=== PATIENT | female | born 1970 | race Caucasian/White ===

== ENCOUNTER 2020-07-15 09:27 | Outpatient (REF) | payer OTHER, SELFPAY ==
[2020-07-15 11:23] LABS: MANUAL DIFF FLAG NO
[2020-07-15 11:46] LABS: Basophils Percent Auto 0.4 % (0-2); Eosinophils Absolute Auto 0.2 X10*3/uL (0.0-0.4); Eosinophils Percent Auto 2.8 % (0-4); Hematocrit 44.9 % (37-47); Hemoglobin 14.5 g/dl (12.0-16.0); Imm Gran Abs Auto 0.02 X10*3/uL (0.00-0.03); Imm Gran Pct Auto 0.4 % (0.0-0.4); Lymphocytes Absolute Auto 1.3 X10*3/uL (1.2-4.9); Mean Corpuscular HGB Conc 32.3 g/dl (31.0-35.0); Mean Corpuscular Hemoglobin 29.2 pg (27.0-33.0); Mean Corpuscular Volume 90.5 fL (80-98); Mean Platelet Volume 10.9 fL (9.4-12.3); Monocytes Absolute Auto 0.5 X10*3/uL (0.1-1.2); Monocytes Percent Auto 9.8 % (2-11); Neutrophils Absolute Auto 3.3 X10*3/uL (2.0-8.3); Neutrophils Percent Auto 62.6 % (45-73); Platelet Count 206 X10*3/uL (160-400); Red Blood Count 4.96 X10*6/uL (4.20-5.50); Red Cell Distribution Width 13.7 % (11.0-16.0); White Blood Count 5.3 X10*3/uL (4.8-10.8)
[2020-07-15 11:58] LABS: Alanine Aminotransferase 18 U/L (0-31); Anion Gap 12 (12-20); Aspartate Amino Transferase 17 U/L (5-31); Blood Urea Nitrogen 16 mg/dL (9-16); Calcium 9.3 mg/dL (8.4-10.2); Carbon Dioxide 28 mmol/L (22-29); Chloride 105 mmol/L (96-108); Cholesterol 187 mg/dL; Estimated Glomerular Filt Rate > 60; Glucose Fasting 94 mg/dL (60-99); HDL Cholesterol 64 mg/dL; LDL Cholesterol Calculated 111 mg/dl; Potassium 4.3 mmol/l (3.3-5.1); Sodium 141 mmol/L (135-145); Triglycerides 63 mg/dL
[2020-07-15 12:22] LABS: Vitamin D 25-OH Total 71.8 ng/mL (>30)
== END 2020-07-15 09:28 | disposition home or self-care (01) ==
LOC: HO.HMGCLDS 09:27
PROVIDERS: PCP Internal Medicine; Visit Provider Internal Medicine
DX: Z00.01 Encounter for general adult medical examination with abnormal findings (principal); C50.919 Malignant neoplasm of unspecified site of unspecified female breast; J45.20 Mild intermittent asthma, uncomplicated; I10 Essential (primary) hypertension
CPT/HCPCS: 36415; 80048; 80061; 82306; 84450; 84460; 85025

== ENCOUNTER 2022-07-06 10:56 | Outpatient (AMB) | payer OTHER, SELFPAY ==
--- NOTE | 2022-07-06 11:03 | MHC.PC.OV ---
Vital Signs 07/06/22 11:05 Height 5 ft 8 in Weight 156 lb BMI 23.7 BP 130/70 Blood Pressure Location Lt brachial Position Sitting Pulse 91 Pulse Source Pulse Oximeter Pulse Oximetry (%) 97 Oxygen Delivery Method Room Air Intake Visit Reasons: PE Intake Note: Pt is here today for her PE Allergies No Known Allergies Allergy (Verified 10/25/23 12:51) Medication List - Last Reconciled 07/06/22 by Dayanna Burden MD albuterol sulfate 90 mcg/actuation 2 puffs PO DAILY PRN anastrozole 1 mg PO DAILY cholecalciferol (vitamin D3) 50 mcg PO DAILY flu vac qs 2019(4 yr up)CD(PF) mL IM fluticasone propion-salmeterol 100-50 mcg/dose (Wixela Inhub) 1 ea PO Q12H multivitamin 1 tab PO DAILY Tobacco use date assessed: 07/06/22 HPI PE HPI Details 53-year-old lady with history mild intermittent asthma, right breast infiltrating duct carcinoma s/p lumpectomy, chemotherapy , radiation and hormone therapy, here today for physical exam.. Currently being followed by Oncology , currently up-to-date with her mammogram, last done 06/02/2022 at [facility]. [facility] Medical History (Updated 03/12/24 @ 00:00 by Dayanna Burden MD) History of infiltrating ductal carcinoma of breast Surgical menopause Uterine fibroid Infiltrating duct carcinoma Mild intermittent asthma Surgical History History of total abdominal hysterectomy and bilateral salpingo-oophorectomy Hx of mastectomy History of lumpectomy of right breast History of wisdom tooth extraction History of mandibular surgery History of brain tumor Family History Father HTN (hypertension) Mother CVD (cardiovascular disease) Son Aortic valve stenosis Maternal Grandfather No problems noted. Maternal Grandmother No problems noted. Paternal Grandfather No problems noted. Paternal Grandmother No problems noted. Sister No problems noted. Daughter No problems noted. Social History Housing: House Alcohol intake: never Patient Tobacco Use Status: Never used Tobacco e-Cigarette/Vaping Use: Never Used Current occupational status: employed Cognitive needs: No Hearing needs: No Vision needs: Yes Female Reproductive History Menstrual Menopause type: surgical Date of Mammogram: 06/01/22 Questionnaire PHQ-9 Over the last 2 weeks, how often have you been bothered by any of the following problems? 1. Little interest or pleasure in doing things: not at all 2. Feeling down, depressed, or hopeless: not at all 3. Trouble falling or staying asleep, or sleeping too much: several days 4. Feeling tired or having little energy: not at all 5. Poor appetite or overeating: not at all 6. Feeling bad about yourself - or that you are a failure or have let yourself or your family down: not at all 7. Trouble concentrating on things, such as reading the newspaper or watching television: not at all 8. Moving or speaking so slowly that other people could have noticed. Or the opposite - being so fidgety or restless that you have been moving around a lot more than usual: not at all 9. Thoughts that you would be better off or of hurting yourself in some way: not at all Total score: 1 Depression Screening Interpretation: Negative 73294 - PHQ-9 Billing: Yes Source: Developed by Drs. Monico Leal, Jesi Basilio, Nikolay Mercado and colleagues, with an educational brandi from [employer] ([place] Thrive Questionnaire Declines Thrive assessment: No Date Thrive assessed: 07/06/22 I am a: Patient What is your living situation today?: I have a steady place to live Within the past 12 months, did the food you bought not last and you didn't have the money to get more?: Never true Within the past 12 months, did you worry whether your food would run out before you got money to buy more?: Never true Do you have trouble paying for medicines?: No Do you have trouble getting transportation to medical appointments?: No Do you have trouble paying your heating and electricity bill?: No Do you have trouble taking care of your child, family member or friend?: No Do you have trouble with day-to-day activities such as bathing, preparing meals, shopping, managing finances, etc.?: No Are you currently unemployed and looking for a job?: No Are you interested in more education?: No AUDIT C Alcohol Use Questionnaire (AUDIT-C) 1. How often do you have a drink containing alcohol?: Never Total Score: 0 HEMAL-7 AMB Questionnaire HEMAL-7 Date HEMAL - 7 assessed: 07/06/22 Feeling nervous, anxious, or on edge: 1 = Several days Not being able to stop or control worryin = Several days Worrying too much about different things: 1 = Several days Trouble relaxin = Several days Being so restless that it is hard to sit still: 0 = Not at all Becoming easily annoyed or irritable: 0 = Not at all Feeling afraid as if something awful might happen: 0 = Not at all Total HEMAL-7 score (0-4 normal; 5-9 mild; 10-14 moderate; 15-21 severe): 4 Source: Developed by Drs. Monico Leal, Jesi Basilio, Nikolay Mercado and colleagues, with an educational brandi from [employer] ([place] HEMAL-7 Assessment Billing HEMAL-7 Assessment Tool: HEMAL-7 Assessment 92051 Asthma Control Questionnaire In the past 4 weeks, how much of the time did your asthma keep you from getting as much done at work, school or at home?: None of the time During the past 4 weeks, how often have you had shortness of breath?: Not at all During the past 4 weeks, how often did your asthma symptoms wake you up at night or earlier than usual in the morning?: Not at all During the past 4 weeks, how often have you had to use your rescue inhaler or nebulizer medication?: Not at all How would you rate your asthma control during the past 4 weeks?: Well controlled Score: 24 Review of Systems Const Denies body aches, Denies fatigue, Denies fever(s), Denies headache(s) and Denies weakness Eyes Denies change in vision ENT Denies dizziness, Denies headache(s), Denies nasal congestion, Denies nasal discharge and Denies sore throat Card Denies chest pain, Denies lightheadedness, Denies palpitations and Denies dyspnea Resp Denies chest congestion, Denies cough, Denies dyspnea and Denies wheezing GI Denies abdominal pain, Denies change in bowel habits and Denies heartburn Denies urinary frequency, Denies dysuria and Denies urinary urgency Musc Denies back pain, Denies myalgias, Denies arthralgias and Denies joint swelling Skin/Breast Denies lesions and Denies rash Neuro Denies dizziness, Denies headache(s) and Denies weakness Psych Reports no additional complaints Endo Denies fatigue, Denies polydipsia, Denies polyuria and Denies palpitations Carlos Eduardo/Lymph Reports no additional complaints Aller/Immun Denies seasonal rhinorrhea and Denies wheezing Physical exam (Primary Care) Vital Signs: Last Vital Signs Pulse 91 07/06/22 11:05 BP 130/70 07/06/22 11:05 Pulse Ox 97 07/06/22 11:05 Oxygen Delivery Method Room Air 07/06/22 11:05 BMI result Body Mass Index 23.7 Tobacco/Smoking Status: Tobacco use Status Tobacco use date assessed 07/06/22 07/06/22 11:07 e-Cigarette/Vaping Use Never Used 07/06/22 11:07 PHQ-9: PHQ-9 Score PHQ-9: Total score 1 07/06/22 11:17 Depression Screening Interpretation: Negative Thrive Assessment: Date of Thrive Assessment Date Thrive assessed 07/06/22 07/06/22 11:17 Const Orientation/consciousness: patient oriented x3 HENMT Head: Yes normocephalic Ears: external ears normal and TM's normal bilaterally General nose exam: Normal external nose present Face and sinus: Yes face symmetric Mouth: Normal oral and palatal mucosa present and moist mucous membranes Eyes General: appearance normal, both eyes and all related structures Neck Neck: Yes full ROM, Yes no lymphadenopathy and Yes supple Chest Other: Status post right mastectomy with reconstruction, no mass palpated on left breast Resp Auscultation: clear to auscultation bilaterally Cardio Other: S1-S2 present regular rate and rhythm GI Palpation (GI): Soft to palpation, nontender, no guarding and no masses Auscultation: normal bowel sounds General: Yes deferred Back/Spine/Pelvis Other: Positive kyphosis Skin General skin exam: no rashes or lesions noted Neuro General: patient oriented x3, gait normal, tone normal, moves all extremities, Normal light touch and pain sensation and no focal motor deficits Extrem General: Yes full ROM, Yes no clubbing, cyanosis or edema and Yes normal gait Psych Appearance: grossly normal and well kempt Mental Status: mental status grossly normal Affect: normal affect Assessment and Plan Assessment & Plan (1) Annual visit for general adult medical examination with abnormal findings: Code(s): Z00.01 - Encounter for general adult medical examination with abnormal findings Plan: Will check appropriate labs. Continue regular dental visit every 6 months and regular eye exams, at least every 2 years. Take adequate calcium in diet and vitamin-D 3 at 2000 IU per cap once a day, in addition to weight-bearing exercises to help maintain good muscle tone and weight control. Currently followed by Oncology, gets yearly breast mammograms currently up-to-date, no longer gets cervical cancer screenings due to history of TAHBSO. Referred for screening colonoscopy to [facility]. Up-to-date with her COVID vaccination and gets yearly flu shot and up-to-date with Tdap. Reminded to get shingles vaccine (2) Surgical menopause: Code(s): E89.40 - Asymptomatic postprocedural ovarian failure Plan: Will check vitamin-D and calcium level, prescription sent for cholecalciferol 50 mcg daily, take adequate calcium from dietary sources and advised to do exercise with weights (3) Mild intermittent asthma: Code(s): J45.20 - Mild intermittent asthma, uncomplicated Qualifiers: Asthma complication type: uncomplicated Qualified Code(s): J45.20 - Mild intermittent asthma, uncomplicated Plan: Controlled on Wixela and has albuterol inhaler to use as needed for episodes of bronchospasm and wheezing. Up-to-date with her COVID vaccination and gets yearly flu shots, reminded to get her pneumonia vaccine, would like to get it on next visit (4) History of infiltrating ductal carcinoma of breast: Code(s): Z85.3 - Personal history of malignant neoplasm of breast Plan: Followed by Oncology, gets yearly mammogram done at [facility], currently up-to-date. Currently on anastrozole 1 mg p.o. daily Orders: Orders Vitamin D 25-OH Total 07/06/22 E89.40 - Asymptomatic postprocedural ovarian failure, Z00.01 - Encounter for general adult medical examination with abnormal findings Alanine Aminotransferase 07/06/22 E89.40 - Asymptomatic postprocedural ovarian failure, Z00.01 - Encounter for general adult medical examination with abnormal findings Basic Metabolic Panel Fasting 07/06/22 E89.40 - Asymptomatic postprocedural ovarian failure, Z00.01 - Encounter for general adult medical examination with abnormal findings Lipid Panel 07/06/22 E89.40 - Asymptomatic postprocedural ovarian failure, Z00.01 - Encounter for general adult medical examination with abnormal findings Complete Blood Count Auto Diff 07/06/22 E89.40 - Asymptomatic postprocedural ovarian failure, Z00.01 - Encounter for general adult medical examination with abnormal findings Aspartate Amino Transferase 07/06/22 E89.40 - Asymptomatic postprocedural ovarian failure, Z00.01 - Encounter for general adult medical examination with abnormal findings Referrals Open Access Screening Colonoscopy Referral Z12.11 - Encounter for screening for malignant neoplasm of colon, Z12.12 - Encounter for screening for malignant neoplasm of rectum Medications: New multivitamin 1 tab PO DAILY cholecalciferol (vitamin D3) 50 mcg PO DAILY Coding Level of Care Code Est Pt Prev Care 40-64y(91250) Diagnoses Annual visit for general adult medical examination with abnormal findings Z00.01 Surgical menopause E89.40 Mild intermittent asthma without complication J45.20 Asthma complication type: uncomplicated History of infiltrating ductal carcinoma of breast Z85.3 Additional Codes HEMAL-7 Assessment Billing - HEMAL-7 Assessment Tool: HEMAL-7 Assessment [id number] ([id number])
[2022-07-06 11:05] VITALS: BP 130/70; PULSE 91; O2SAT 97; BMI 23.7
== END 2022-07-06 11:45 | disposition home or self-care (01) ==
PROVIDERS: PCP Internal Medicine; Visit Provider Internal Medicine
DX: Z00.01 Encounter for general adult medical examination with abnormal findings (principal); E89.40 Asymptomatic postprocedural ovarian failure; J45.20 Mild intermittent asthma, uncomplicated; Z85.3 Personal history of malignant neoplasm of breast
CPT/HCPCS: 99499

== ENCOUNTER 2022-07-06 11:37 | Outpatient (REF) | payer OTHER, SELFPAY ==
[2022-07-06 13:55] LABS: MANUAL DIFF FLAG NO
[2022-07-06 14:08] LABS: Basophils Percent Auto 0.6 % (0-2); Eosinophils Absolute Auto 0.2 X10*3/uL (0.0-0.4); Eosinophils Percent Auto 2.6 % (0-4); Hematocrit 47.6 % (37.0-47.0); Imm Gran Abs Auto 0.03 X10*3/uL (0.00-0.03); Imm Gran Pct Auto 0.5 % (0.0-0.4); Lymphocytes Absolute Auto 1.4 X10*3/uL (1.2-4.9); Mean Corpuscular HGB Conc 31.5 g/dl (31.0-35.0); Mean Corpuscular Hemoglobin 28.8 pg (27.0-33.0); Mean Corpuscular Volume 91.4 fL (80.0-98.0); Mean Platelet Volume 11.4 fL (9.4-12.3); Monocytes Absolute Auto 0.6 X10*3/uL (0.1-1.2); Monocytes Percent Auto 9.1 % (2-11); Neutrophils Absolute Auto 4.3 x10*3/uL (2.0-8.3); Neutrophils Percent Auto 65.2 % (45-73); Platelet Count 211 X10*3/uL (160-400); Red Blood Count 5.21 X10*6/uL (4.20-5.50); Red Cell Distribution Width 13.8 % (11.0-16.0); White Blood Count 6.5 X10*3/uL (4.8-10.8)
[2022-07-06 14:12] LABS: Alanine Aminotransferase 19 U/L (0-31); Anion Gap 16 (12-20); Aspartate Amino Transferase 20 U/L (5-31); Blood Urea Nitrogen 19 mg/dL (9-16); Calcium 9.6 mg/dL (8.4-10.2); Carbon Dioxide 25 mmol/L (22-29); Chloride 108 mmol/L (96-108); Cholesterol 190 mg/dL; Estimated Glomerular Filt Rate > 60; Glucose Fasting 90 mg/dL (60-99); HDL Cholesterol 59 mg/dL; LDL Cholesterol Calculated 119 mg/dl; Potassium 4.2 mmol/L (3.3-5.1); Sodium 145 mmol/L (135-145); Triglycerides 64 mg/dL
[2022-07-06 15:53] LABS: Vitamin D 25-OH Total 114.6 ng/mL (>30)
== END 2022-07-06 11:38 | disposition home or self-care (01) ==
LOC: HO.HMGCLDS 11:37
PROVIDERS: PCP Internal Medicine; Visit Provider Internal Medicine
DX: Z00.01 Encounter for general adult medical examination with abnormal findings (principal); E89.40 Asymptomatic postprocedural ovarian failure
CPT/HCPCS: 36415; 80048; 80061; 82306; 84450; 84460; 85025

== ENCOUNTER → 2022-10-12 14:36 | Outpatient (BNVA) | payer OTHER, SELFPAY | PROVIDERS: PCP Internal Medicine; Referring Provider Internal Medicine; Visit Provider Internal Medicine | DX: Z13.89 Encounter for screening for other disorder (principal) ==

== ENCOUNTER 2023-01-26 09:04 | Day surgery (SDC) | payer OTHER, SELFPAY ==
--- NOTE | 2023-01-25 11:06 | HO.ANESPROP2 ---
Documented by User: Starla Krause NP 01/25/23 11:07 HPI - Anesthesia Eval Consult details Narrative: 52yo F for Colonoscopy PMFSH Active Problems Active Problems: All Active Problems (Updated 10/12/22 @ 15:29 by Shaneka Maynard MD) Colon cancer screening (Acute) Surgical menopause (Acute) Infiltrating duct carcinoma (Acute) Mild intermittent asthma (Acute) Past Medical History Medical History Infiltrating duct carcinoma Mild intermittent asthma Surgical menopause Uterine fibroid Family History Family History Father HTN (hypertension) Mother CVD (cardiovascular disease) Son Aortic valve stenosis Maternal Grandfather No problems noted. Maternal Grandmother No problems noted. Paternal Grandfather No problems noted. Paternal Grandmother No problems noted. Sister No problems noted. Daughter No problems noted. Surgical History Surgical History History of brain tumor History of lumpectomy of right breast History of mandibular surgery History of total abdominal hysterectomy and bilateral salpingo-oophorectomy History of wisdom tooth extraction Hx of mastectomy Social History Social History Housing: House Alcohol intake: never Patient Tobacco Use Status: Never used Tobacco e-Cigarette/Vaping Use: Never Used Are you DNR?: No Advance Directives: No Advance Directives Information Provided: Yes Nutrition Risks: No Nutritional Risk Current occupational status: employed Cognitive needs: No Hearing needs: No Vision needs: Yes Meds Allergies Allergy/AdvReac Type Severity Reaction Status Date / Time No Known Allergies Allergy Verified 01/26/23 09:39 Home Medications Medication Instructions Recorded Confirmed Last Taken Type anastrozole 1 mg tablet 1 mg PO DAILY 07/15/20 01/24/23 Unknown History flu vac qs 2019(4 yr up)CD(PF) 60 ml IM 07/15/20 07/15/20 Unknown History mcg(15 mcgx4)/0.5 mL IM syringe cholecalciferol (vitamin D3) 50 50 mcg PO DAILY 07/06/22 01/24/23 Unknown History mcg (2,000 unit) capsule multivitamin 1 tab PO DAILY 07/06/22 01/24/23 Unknown History Exam Exam Date and Time: January 25, 2023 1106 Pertinent Lab Results Pertinent Lab Results: Laboratory Tests 07/06/22 07/06/22 11:42 11:42 WBC 6.5 Hgb 15.0 Hct 47.6 H Plt Count 211 Sodium 145 Potassium 4.2 Chloride 108 Carbon Dioxide 25 BUN 19 H Creatinine 0.75 Assessment and Plan Assessment Anesthesia Assessment: Chart Reviewed Documented by User: Mireille Stark MD 01/26/23 12:22 [facility] Past Medical History Medical History Infiltrating duct carcinoma Mild intermittent asthma Surgical menopause Uterine fibroid Family History Family History Father HTN (hypertension) Mother CVD (cardiovascular disease) Son Aortic valve stenosis Maternal Grandfather No problems noted. Maternal Grandmother No problems noted. Paternal Grandfather No problems noted. Paternal Grandmother No problems noted. Sister No problems noted. Daughter No problems noted. Family history of problems with anesthesia: No Surgical History Surgical History History of brain tumor History of lumpectomy of right breast History of mandibular surgery History of total abdominal hysterectomy and bilateral salpingo-oophorectomy History of wisdom tooth extraction Hx of mastectomy History of Problems with Anesthesia: No Social History Social History Housing: House Alcohol intake: never Patient Tobacco Use Status: Never used Tobacco e-Cigarette/Vaping Use: Never Used Are you DNR?: No Advance Directives: No Advance Directives Information Provided: Yes Nutrition Risks: No Nutritional Risk Current occupational status: employed Cognitive needs: No Hearing needs: No Vision needs: Yes Meds Allergies Allergy/AdvReac Type Severity Reaction Status Date / Time No Known Allergies Allergy Verified 01/26/23 09:39 Home Medications Medication Instructions Recorded Confirmed Last Taken Type anastrozole 1 mg tablet 1 mg PO DAILY 07/15/20 01/24/23 Unknown History flu vac qs 2019(4 yr up)CD(PF) 60 ml IM 07/15/20 07/15/20 Unknown History mcg(15 mcgx4)/0.5 mL IM syringe cholecalciferol (vitamin D3) 50 50 mcg PO DAILY 07/06/22 01/24/23 Unknown History mcg (2,000 unit) capsule multivitamin 1 tab PO DAILY 07/06/22 01/24/23 Unknown History Exam Airway Mallampati Class: I TM Dist: >3cm Neck ROM: Full Loose/Missing/Broken Teeth: No Heart: rr Lungs: cta Assessment and Plan Assessment Anesthesia Assessment: Anesthesia Plan Discussed Final Anesthetic Review Family History of Problems with Anesthesia: No History of Problems with Anesthesia: No NPO: Yes ASA Class: II Final Preanesthetic Review: No Changes in Pt Med Stat, Meds/Allgs Chart Reviewed, Consent Obtained/Reviewed and Anes Risks/Benef Reviewed Patient Risk: Low Procedure Risk: Low Anesthetic Plan Disposition: Standard PACU
[2023-01-26 09:31] VITALS: BMI 23.4
[2023-01-26] MEDS: Lactated Ringers 1,000 ML 100 ML IVCONT (09:47)
[2023-01-26 09:55] VITALS: BP 124/86; PULSE 88; RESP 18; TEMP 36.4; O2SAT 96
--- NOTE | 2023-01-26 10:19 | MHC.SHP ---
Pre-Procedural Eval Section A Date of Service: 01/26/23 Section B Chief Complaint: Screening Details of Present Illness: PMH: Infiltrating duct carcinoma Mild intermittent asthma Surgical menopause Uterine fibroid Surgical History: History of brain tumor History of lumpectomy of right breast History of mandibular surgery History of total abdominal hysterectomy and bilateral salpingo-oophorectomy History of wisdom tooth extraction Hx of mastectomy Present Medications: see Short Stay Collaborative assessment Allergies: Allergies Allergy/AdvReac Type Severity Reaction Status Date / Time No Known Allergies Allergy Verified 01/26/23 09:39 Review of Systems Review of Systems Comment: Ten point ROS negative Exam Exam Comment: Gen appear: No acute distress HEENT: no icterus Chest: No overt resp distress Abd: soft, nontender, nondistended Psych: Stable affect, answering questions appropriately Neuro: A/Ox3 noted to move all extremities spontaneously Ext: no peripheral edema Plan Diagnosis/Plan: Unchanged I have reviewed the history and physical and performed a pertinent physical examination on my patient. No changes have occurred unless specified. Time Spent With Patient Time: Total time managing care of this patient today ____ minutes.
--- NOTE | 2023-01-26 11:58 | P.OP_ITS ---
Operative Note Operative Note Date of Service: 01/26/23 Narrative: Procedure: Colonoscopy Indication: Screening Endoscopist: Shaneka Maynard MD Anesthesia Provider: Dr Mireille Stark Anesthesia type: MAC Instrument: Olympus [id number]-[id number] Consent: Indication, risks vs benefits, and alternatives were discussed with the patient who gave written informed consent to proceed. EKG, pulse, pulse oximetry and blood pressure were monitored throughout the procedure. Please see anesthesia flowsheet. Procedure: The patient was brought to the procedure room and placed in the left lateral decubitus position. IV medications were administered by the anesthesia provider in attendance. A digital rectal exam was performed which was normal. A distal attachment cap was affixed to the tip of the scope and the colonoscope was then inserted through the anus and advanced through the colon to the cecum at 75 cm. Mucosa was carefully examined under high definition white light as the instrument was slowly withdrawn in a retrograde panoramic fashion. Retroflexion was performed in rectum. The procedure was not difficult. There were no immediate obvious complications. The quality of the prep was BBPS: 3+2+3 = adequate Withdrawal time 11 minutes. Limitations: No limitations. Findings: Mucosa: Normal to cecum. Protruding lesions: * 1 sessile polyp of size 7 mm in transverse colon. Cold snare polypectomy was performed. The polyp was completely removed and retrieved. * Small internal hemorrhoids without stigmata of recent bleeding. Impression: 1. Normal colon mucosa 2. Total of 1 polyp removed from transverse colon. 3. Internal hemorrhoids Recommendations: - Follow path results. - Repeat colonoscopy in 7-10 years if polyp is adenoma.
[2023-01-26 12:34] VITALS: BP 146/93; PULSE 84; RESP 16; TEMP 37.2; O2SAT 96
[2023-01-26 12:49] VITALS: BP 133/94; PULSE 79; RESP 16; TEMP 37.2; O2SAT 96
== END 2023-01-26 13:21 | disposition home or self-care (01) ==
PROVIDERS: PCP Internal Medicine; Visit Provider Internal Medicine
PROC: 0DJD8ZZ Inspection of Lower Intestinal Tract, Via Natural or Artificial Opening Endoscopic (ICD-10-PCS; CPT 45378; principal; 2023-01-26 11:10)
DX: Z12.11 Encounter for screening for malignant neoplasm of colon (principal); D12.3 Benign neoplasm of transverse colon; K64.8 Other hemorrhoids; J45.20 Mild intermittent asthma, uncomplicated; D25.9 Leiomyoma of uterus, unspecified; Z78.0 Asymptomatic menopausal state; Z85.3 Personal history of malignant neoplasm of breast; Z90.11 Acquired absence of right breast and nipple; Z98.890 Other specified postprocedural states; Z79.899 Other long term (current) drug therapy
CPT/HCPCS: 45385; 88305

== ENCOUNTER 2023-10-25 11:48 | Outpatient (AMB) | payer OTHER, SELFPAY ==
--- NOTE | 2023-10-25 12:25 | MHC.PC.OV ---
Vital Signs 10/25/23 12:31 Height 5 ft 8 in Weight 155 lb 2 oz BMI 23.6 BP 120/80 Blood Pressure Location Rt brachial Position Sitting Pulse 77 Pulse Source Pulse Oximeter Pulse Oximetry (%) 96 Oxygen Delivery Method Room Air Intake Visit Reasons: Annual PE/Last seen 07/05 Intake Note: Pt is here for her annual physical exam. Allergies No Known Allergies Allergy (Verified 10/25/23 12:51) Medication List - Last Reconciled 10/25/23 by Dayanna Burden MD albuterol sulfate 90 mcg/actuation 2 puffs PO DAILY PRN anastrozole 1 mg PO DAILY cholecalciferol (vitamin D3) 50 mcg PO DAILY flu vac qs 2020(4 yr up)CD(PF) mL IM fluticasone propion-salmeterol 100-50 mcg/dose (Wixela Inhub) 1 ea PO Q12H multivitamin 1 tab PO DAILY Tobacco use date assessed: 10/25/23 Dental Screening Dental Screen Date: 10/25/23 Did you have a dental visit in the last 12 months?: Yes Did you have a dental problem in the last 6 months where you did not have access to dental care?: No Was dental information given to patient?: Patient has dentist HPI Annual PE/Last seen 07/05 HPI Details 53-year-old lady here today for physical exam. She has history of 2 immunophenotypic different infiltrating ductal carcinoma, 1 of which is ER/OH positive/, HER2 positive and the other is ER/OH negative and HER2 positive s/p surgery, adjuvant radiation, chemotherapy and hormone therapy, with local recurrence, with DCIS status post mastectomy and reconstruction, doing better after recurrence. Completed 5 years of anastrozole and recommended to continue 2 more years on it. She underwent TAHBSO due to postmenopausal bleeding, and has mild intermittent asthma, stable controlled on present inhalers. She had recent bone density scan ordered by her oncologist and was started on zoledronic acid she has been feeling well, with no new complaints at present time. [facility] Medical History Surgical menopause Uterine fibroid Infiltrating duct carcinoma Mild intermittent asthma Surgical History History of total abdominal hysterectomy and bilateral salpingo-oophorectomy Hx of mastectomy History of lumpectomy of right breast History of wisdom tooth extraction History of mandibular surgery History of brain tumor Family History Father HTN (hypertension) Mother CVD (cardiovascular disease) Son Aortic valve stenosis Maternal Grandfather No problems noted. Maternal Grandmother No problems noted. Paternal Grandfather No problems noted. Paternal Grandmother No problems noted. Sister No problems noted. Daughter No problems noted. Social History Housing: House Alcohol intake: never Patient Tobacco Use Status: Never used Tobacco e-Cigarette/Vaping Use: Never Used Current occupational status: employed Cognitive needs: No Hearing needs: No Vision needs: Yes Female Reproductive History Menstrual Menopause type: surgical Questionnaire PHQ-9 Over the last 2 weeks, how often have you been bothered by any of the following problems? 1. Little interest or pleasure in doing things: not at all 2. Feeling down, depressed, or hopeless: not at all 3. Trouble falling or staying asleep, or sleeping too much: several days 4. Feeling tired or having little energy: not at all 5. Poor appetite or overeating: not at all 6. Feeling bad about yourself - or that you are a failure or have let yourself or your family down: not at all 7. Trouble concentrating on things, such as reading the newspaper or watching television: not at all 8. Moving or speaking so slowly that other people could have noticed. Or the opposite - being so fidgety or restless that you have been moving around a lot more than usual: not at all 9. Thoughts that you would be better off or of hurting yourself in some way: not at all Total score: 1 Depression Screening Interpretation: Negative Depression Screening Done: Yes 94869 - PHQ-9 Billing: Yes Source: Developed by Drs. Monico Leal, Jesi Basilio, Nikolay Mercado and colleagues, with an educational brandi from [employer]. Thrive Questionnaire Date Thrive assessed: 10/25/23 I am a: Patient What is your living situation today?: I have a steady place to live Within the past 12 months, did the food you bought not last and you didn't have the money to get more?: Never true Within the past 12 months, did you worry whether your food would run out before you got money to buy more?: Never true Do you have trouble paying for medicines?: No Do you have trouble getting transportation to medical appointments?: No Do you have trouble paying your heating and electricity bill?: No Do you have trouble taking care of your child, family member or friend?: No Do you have trouble with day-to-day activities such as bathing, preparing meals, shopping, managing finances, etc.?: No Are you currently unemployed and looking for a job?: No Are you interested in more education?: No THRIVE Score: 0 AUDIT C Alcohol Use Questionnaire (AUDIT-C) 1. How often do you have a drink containing alcohol?: Never 2. How many drinks containing alcohol do you have on a typical day when you are drinking?: 1 or 2 3. How often do you have six or more drinks on one occasion?: Never Total Score: 0 HEMAL-7 AMB Questionnaire HEMAL-7 Date HEMAL - 7 assessed: 10/25/23 Feeling nervous, anxious, or on edge: 1 = Several days Not being able to stop or control worryin = Several days Worrying too much about different things: 1 = Several days Trouble relaxin = Several days Being so restless that it is hard to sit still: 0 = Not at all Becoming easily annoyed or irritable: 0 = Not at all Feeling afraid as if something awful might happen: 0 = Not at all Total HEMAL-7 score (0-4 normal; 5-9 mild; 10-14 moderate; 15-21 severe): 4 Source: Developed by Drs. Monico Leal, Jeis Basilio, Nikolay Mercado and colleagues, with an educational brandi from [employer]. HEMAL-7 Assessment Billing HEMAL-7 Assessment Tool: HEMAL-7 Assessment 77446 Review of Systems Const Denies body aches, Denies fatigue, Denies fever(s), Denies headache(s) and Denies weakness Eyes Denies change in vision ENT Denies dizziness, Denies headache(s), Denies nasal congestion, Denies nasal discharge and Denies sore throat Card Denies chest pain, Denies lightheadedness, Denies palpitations and Denies dyspnea Resp Denies chest congestion, Denies cough, Denies dyspnea and Denies wheezing GI Denies abdominal pain, Denies change in bowel habits and Denies heartburn Denies urinary frequency, Denies dysuria and Denies urinary urgency Musc Denies back pain, Denies myalgias, Denies arthralgias and Denies joint swelling Skin/Breast Denies lesions and Denies rash Neuro Denies dizziness, Denies headache(s) and Denies weakness Psych Denies anxiety, Denies change in appetite and Denies depression Endo Denies fatigue, Denies polydipsia, Denies polyuria and Denies palpitations Carlos Eduardo/Lymph Denies easy bruising Aller/Immun Denies seasonal rhinorrhea and Denies wheezing Physical exam (Primary Care) Vital Signs: Last Vital Signs Pulse 77 10/25/23 12:31 BP 120/80 10/25/23 12:31 Pulse Ox 96 10/25/23 12:31 Oxygen Delivery Method Room Air 10/25/23 12:31 BMI result Body Mass Index 23.6 Tobacco/Smoking Status: Tobacco use Status Tobacco use date assessed 10/25/23 10/25/23 12:33 Patient Tobacco Use Status Never used Tobacco 10/25/23 12:27 e-Cigarette/Vaping Use Never Used 10/25/23 12:27 PHQ-9: PHQ-9 Score PHQ-9: Total score 1 10/25/23 13:01 Depression Screening Interpretation: Negative Thrive Assessment: Date of Thrive Assessment Date Thrive assessed 10/25/23 10/25/23 12:27 Const Orientation/consciousness: patient oriented x3 [facility] Head: Yes normocephalic Ears: hearing grossly normal bilaterally, external ears normal and TM's normal bilaterally General nose exam: Normal external nose present Face and sinus: Yes face symmetric Mouth: Normal oral and palatal mucosa present and moist mucous membranes Eyes General: appearance normal, both eyes and all related structures Neck Neck: Yes full ROM, Yes no lymphadenopathy and Yes supple Chest Other: Status post right mastectomy with reconstruction, no mass palpated on left per Resp Auscultation: clear to auscultation bilaterally Cardio Other: S1-S2 present regular rate and rhythm GI Palpation (GI): Soft to palpation, nontender, no guarding and no masses Auscultation: normal bowel sounds General: Yes deferred Back/Spine/Pelvis Other: Positive kyphosis Skin General skin exam: no rashes or lesions noted Neuro General: patient oriented x3, gait normal, tone normal, moves all extremities, Normal light touch and pain sensation and no focal motor deficits Extrem General: Yes full ROM, Yes no clubbing, cyanosis or edema and Yes normal gait Psych Appearance: grossly normal and well kempt Mental Status: mental status grossly normal Affect: normal affect Assessment and Plan Assessment & Plan (1) Annual visit for general adult medical examination with abnormal findings: Code(s): Z00.01 - Encounter for general adult medical examination with abnormal findings Plan: Will check appropriate labs. Recommended dental visit every 6 months and regular eye exams, at least every 2 years. Take adequate calcium in diet and vitamin-D 3 at 2000 IU per cap once a day, in addition to weight-bearing exercises to help maintain good muscle tone and weight control. Instructed to do self-breast exam, and up-to-date with her continued just yearly left breast mammogram, was started on zoledronic acid b her oncologist , up-to-date her bone density scan results unavailable to me at present time. Up-to-date with her vaccinations but does not want to get a COVID vaccine. Up-to-date with her screening colonoscopies, to be repeated again in 5 years Orders: Orders Complete Blood Count Auto Diff Today E89.40 - Asymptomatic postprocedural ovarian failure, Z00.01 - Encounter for general adult medical examination with abnormal findings, Z13.1 - Encounter for screening for diabetes mellitus, Z13.220 - Encounter for screening for lipoid disorders Lipid Panel Today E89.40 - Asymptomatic postprocedural ovarian failure, Z00.01 - Encounter for general adult medical examination with abnormal findings, Z13.1 - Encounter for screening for diabetes mellitus, Z13.220 - Encounter for screening for lipoid disorders Vitamin B12 and Folate Today E89.40 - Asymptomatic postprocedural ovarian failure, Z00.01 - Encounter for general adult medical examination with abnormal findings, Z13.1 - Encounter for screening for diabetes mellitus, Z13.220 - Encounter for screening for lipoid disorders Comprehensive [place]. Panel Fast Today E89.40 - Asymptomatic postprocedural ovarian failure, Z00.01 - Encounter for general adult medical examination with abnormal findings, Z13.1 - Encounter for screening for diabetes mellitus, Z13.220 - Encounter for screening for lipoid disorders Vitamin D 25-OH Total Today E89.40 - Asymptomatic postprocedural ovarian failure, Z00.01 - Encounter for general adult medical examination with abnormal findings, Z13.1 - Encounter for screening for diabetes mellitus, Z13.220 - Encounter for screening for lipoid disorders Coding Level of Care Code Est Pt Prev Care 40-64y(99313) Diagnoses Annual visit for general adult medical examination with abnormal findings Z00.01 Additional Codes HEMAL-7 Assessment Billing - HEMAL-7 Assessment Tool: HEMAL-7 Assessment 12002 ([id number])
[2023-10-25 12:31] VITALS: BP 120/80; PULSE 77; O2SAT 96; BMI 23.6
== END 2023-10-25 16:06 | disposition home or self-care (01) ==
PROVIDERS: PCP Internal Medicine; Visit Provider Internal Medicine
DX: Z00.01 Encounter for general adult medical examination with abnormal findings (principal)
CPT/HCPCS: 99396

== ENCOUNTER 2023-10-25 13:02 | Outpatient (REF) | payer OTHER, SELFPAY ==
[2023-10-25 16:27] LABS: MANUAL DIFF FLAG NO
[2023-10-25 16:30] LABS: Basophils Percent Auto 0.4 % (0-2); Eosinophils Absolute Auto 0.1 X10*3/uL (0.0-0.4); Eosinophils Percent Auto 1.4 % (0-4); Hematocrit 46.7 % (37.0-47.0); Hemoglobin 14.8 g/dl (12.0-16.0); Imm Gran Abs Auto 0.02 X10*3/uL (0.00-0.03); Imm Gran Pct Auto 0.2 % (0.0-0.4); Lymphocytes Absolute Auto 1.3 X10*3/uL (1.2-4.9); Lymphocytes Percent Auto 15.2 % (20-40); Mean Corpuscular HGB Conc 31.7 g/dl (31.0-35.0); Mean Corpuscular Hemoglobin 28.6 pg (27.0-33.0); Mean Corpuscular Volume 90.3 fL (80.0-98.0); Mean Platelet Volume 11.4 fL (9.4-12.3); Monocytes Absolute Auto 0.6 X10*3/uL (0.1-1.2); Monocytes Percent Auto 7.3 % (2-11); Neutrophils Absolute Auto 6.3 x10*3/uL (2.0-8.3); Neutrophils Percent Auto 75.5 % (45-73); Platelet Count 202 X10*3/uL (160-400); Red Blood Count 5.17 X10*6/uL (4.20-5.50); Red Cell Distribution Width 13.7 % (11.0-16.0); White Blood Count 8.4 X10*3/uL (4.8-10.8)
[2023-10-25 16:56] LABS: Alanine Aminotransferase 25 U/L (0-31); Albumin Level 4.3 g/dL (3.5-5.0); Alkaline Phosphatase 47 U/L (39-117); Anion Gap 12 (12-20); Aspartate Amino Transferase 24 U/L (5-31); Bilirubin Total 0.5 mg/dL (0.0-1.0); Blood Urea Nitrogen 22 mg/dL (9-16); Calcium 9.9 mg/dL (8.4-10.2); Carbon Dioxide 29 mmol/L (22-29); Chloride 107 mmol/L (96-108); Cholesterol 189 mg/dL (<200); Estimated Glomerular Filt Rate > 60; Glucose Fasting 85 mg/dL (60-99); HDL Cholesterol 62 mg/dL (>40); LDL Cholesterol Calculated 113 mg/dL (<100); Potassium 4.5 mmol/L (3.3-5.1); Sodium 143 mmol/L (135-145); Total Protein 7.5 g/dL (6.5-8.0); Triglycerides 70 mg/dL (<150)
[2023-10-25 17:12] LABS: Folate 13.8 ng/mL (> or = 4.0); Vitamin B12 679 pg/mL (200-900)
[2023-10-25 18:02] LABS: Vitamin D 25-OH Total 113.2 ng/mL (>30)
== END 2023-10-25 13:03 | disposition home or self-care (01) ==
LOC: HO.HMGCLDS 13:02
PROVIDERS: PCP Internal Medicine; Visit Provider Internal Medicine
DX: Z00.01 Encounter for general adult medical examination with abnormal findings (principal); Z13.1 Encounter for screening for diabetes mellitus; Z13.220 Encounter for screening for lipoid disorders; Z13.6 Encounter for screening for cardiovascular disorders; E89.40 Asymptomatic postprocedural ovarian failure
CPT/HCPCS: 36415; 80053; 80061; 82306; 82607; 82746; 85025

== ENCOUNTER 2024-11-06 08:13 | Outpatient (AMB) | payer OTHER, SELFPAY ==
--- NOTE | 2024-11-06 08:46 | MHC.PC.OV ---
Vital Signs 11/06/24 09:02 Height 5 ft 8 in Weight 153 lb BMI 23.3 BP 134/80 Blood Pressure Location Lt brachial Position Sitting Respiration 15 Pulse 78 Pulse Source Pulse Oximeter Temp 97.6 F Temp Source Oral Pulse Oximetry (%) 98 Oxygen Delivery Method Room Air Intake Visit Reasons: Annual physical Intake Note: Pt is here today for her PE: Last mammogram 08/23/23, colonoscopy 01/26/23 Allergies No Known Allergies Allergy (Verified 11/06/24 08:47) Medication List - Last Reconciled 11/06/24 by Dayanna Burden MD albuterol sulfate 90 mcg/actuation 2 puffs PO DAILY PRN anastrozole 1 mg PO DAILY cholecalciferol (vitamin D3) 50 mcg PO DAILY fluticasone propion-salmeterol 100-50 mcg/dose (Wixela Inhub) 1 ea PO Q12H multivitamin 1 tab PO DAILY Tobacco use date assessed: 11/06/24 Dental Screening Dental Screen Date: 11/06/24 Did you have a dental visit in the last 12 months?: Yes Did you have a dental problem in the last 6 months where you did not have access to dental care?: No Was dental information given to patient?: Patient has dentist HPI Annual physical HPI Details 54 year old lady with 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 Underwent surgery with adjuvant radiation, chemotherapy, and hormone therapy with local recurrence, with DCIS status post mastectomy and reconstruction. She completed already 5 years of anastrozole and was advised to continue with it indefinitely. 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 She is currently being followed at [facility] oncology, and is up-to-date with her screening mammogram, done earlier this year. No longer gets routine Pap and pelvic exam after hysterectomy. She had a bone density scan done several years ago ordered by her oncologist and was given zoledronic acid infusion, which has now been discontinued. Copy of results requested She has mild intermittent asthma, taking her Wixela every now and then and rarely needs to use her albuterol inhaler. She has had COVID vaccinations but does not want to get the booster anymore, forgot to get her flu shot last year, up-to-date with her shingles vaccine and Tdap She is up-to-date with her screening colonoscopy done in 2022 with removal of a sessile serrated polyp, repeat colonoscopy due again in 2027 [facility] Medical History (Updated 11/06/24 @ 09:54 by Dayanna Burden MD) History of infiltrating ductal carcinoma of breast Surgical menopause Uterine fibroid Infiltrating duct carcinoma Mild intermittent asthma Surgical History History of total abdominal hysterectomy and bilateral salpingo-oophorectomy Hx of mastectomy History of lumpectomy of right breast History of wisdom tooth extraction History of mandibular surgery History of brain tumor Family History Father HTN (hypertension) Mother CVD (cardiovascular disease) Son Aortic valve stenosis Maternal Grandfather No problems noted. Maternal Grandmother No problems noted. Paternal Grandfather No problems noted. Paternal Grandmother No problems noted. Sister No problems noted. Daughter No problems noted. Social History Housing: House Alcohol intake: never Patient Tobacco Use Status: Never used Tobacco e-Cigarette/Vaping Use: Never Used Current occupational status: employed Cognitive needs: No Hearing needs: No Vision needs: Yes Questionnaire PHQ-9 Over the last 2 weeks, how often have you been bothered by any of the following problems? 1. Little interest or pleasure in doing things: not at all 2. Feeling down, depressed, or hopeless: several days 3. Trouble falling or staying asleep, or sleeping too much: several days 4. Feeling tired or having little energy: not at all 5. Poor appetite or overeating: not at all 6. Feeling bad about yourself - or that you are a failure or have let yourself or your family down: not at all 7. Trouble concentrating on things, such as reading the newspaper or watching television: several days 8. Moving or speaking so slowly that other people could have noticed. Or the opposite - being so fidgety or restless that you have been moving around a lot more than usual: not at all 9. Thoughts that you would be better off or of hurting yourself in some way: not at all Total score: 3 Depression Screening Interpretation: Negative Depression Screening Done: Yes 42178 - PHQ-9 Billing: Yes Source: Developed by Drs. Monico Leal, Jesi Basilio, Nikolay Mercado and colleagues, with an educational brandi from [employer]. Thrive Questionnaire Date Thrive assessed: 11/06/24 I am a: Patient What is your living situation today?: I have a steady place to live Within the past 12 months, did the food you bought not last and you didn't have the money to get more?: Never true Within the past 12 months, did you worry whether your food would run out before you got money to buy more?: Never true Do you have trouble paying for medicines?: No Do you have trouble getting transportation to medical appointments?: No Do you have trouble paying your heating and electricity bill?: No Do you have trouble taking care of your child, family member or friend?: No Do you have trouble with day-to-day activities such as bathing, preparing meals, shopping, managing finances, etc.?: No Are you currently unemployed and looking for a job?: No Are you interested in more education?: No Please select the resources that you would like help with: None Currently or been in a relationship where the following occur: No concerns reported THRIVE Score: 0 AUDIT C Alcohol Use Questionnaire (AUDIT-C) 1. How often do you have a drink containing alcohol?: Monthly or less 2. How many drinks containing alcohol do you have on a typical day when you are drinking?: 1 or 2 3. How often do you have six or more drinks on one occasion?: Never Total Score: 1 HEMAL-7 AMB Questionnaire HEMAL-7 Date HEMAL - 7 assessed: 11/06/24 Feeling nervous, anxious, or on edge: 1 = Several days Not being able to stop or control worryin = Several days Worrying too much about different things: 1 = Several days Trouble relaxin = Several days Being so restless that it is hard to sit still: 1 = Several days Becoming easily annoyed or irritable: 0 = Not at all Feeling afraid as if something awful might happen: 0 = Not at all Total HEMAL-7 score (0-4 normal; 5-9 mild; 10-14 moderate; 15-21 severe): 5 Source: Developed by Drs. Monico Leal, Jesi Basilio, Nikolay Mercado and colleagues, with an educational brandi from [employer]. HEMAL-7 Assessment Billing HEMAL-7 Assessment Tool: HEMAL-7 Assessment 23203 Review of Systems Const Denies body aches, Denies fatigue, Denies fever(s), Denies headache(s) and Denies weakness Eyes Details: Goes to [facility] eye care Denies change in vision ENT Denies dizziness, Denies headache(s), Denies nasal congestion, Denies nasal discharge and Denies sore throat Card Denies chest pain, Denies lightheadedness, Denies palpitations and Denies dyspnea Resp Denies chest congestion, Denies cough, Denies dyspnea and Denies wheezing GI Denies abdominal pain, Denies change in bowel habits and Denies heartburn Denies urinary frequency, Denies dysuria and Denies urinary urgency Musc Denies back pain, Denies myalgias, Denies arthralgias and Denies joint swelling Skin/Breast Denies lesions and Denies rash Neuro Denies dizziness, Denies headache(s) and Denies weakness Psych Denies anxiety, Denies change in appetite and Denies depression Endo Denies fatigue, Denies polydipsia, Denies polyuria and Denies palpitations Carlos Eduardo/Lymph Denies easy bruising Aller/Immun Denies seasonal rhinorrhea and Denies wheezing Physical exam (Primary Care) Vital Signs: Last Vital Signs Temp 97.6 F 11/06/24 09:02 Pulse 78 11/06/24 09:02 Resp 15 11/06/24 09:02 BP 134/80 11/06/24 09:02 Pulse Ox 98 11/06/24 09:02 Oxygen Delivery Method Room Air 11/06/24 09:02 BMI result Body Mass Index 23.3 Tobacco/Smoking Status: Tobacco use Status Tobacco use date assessed 11/06/24 11/06/24 08:48 Patient Tobacco Use Status Never used Tobacco 11/06/24 08:48 e-Cigarette/Vaping Use Never Used 11/06/24 08:48 PHQ-9: PHQ-9 Score PHQ-9: Total score 3 11/06/24 09:09 Depression Screening Interpretation: Negative Thrive Assessment: Date of Thrive Assessment Date Thrive assessed 11/06/24 11/06/24 08:48 Currently or been in a relationship where the following occur: No concerns reported Advance Care Planning discussion: Completed/Scanned Date of discussion: 11/06/24 Who was present: Patient Forms completed: Health Care Proxy Time spent: 16-45 minutes Actual minutes spent: 3 Const Orientation/consciousness: patient oriented x3 HENMT Head: Yes normocephalic Ears: external ears normal and TM's normal bilaterally General nose exam: Normal external nose present Face and sinus: Yes face symmetric Mouth: Normal oral and palatal mucosa present and moist mucous membranes Eyes General: appearance normal, both eyes and all related structures Neck Neck: Yes full ROM, Yes no lymphadenopathy and Yes supple Chest Other: Status post right mastectomy with reconstruction, no mass palpated on left per Resp Auscultation: clear to auscultation bilaterally Cardio Other: S1-S2 present regular rate and rhythm GI Palpation (GI): Soft to palpation, nontender, no guarding and no masses Auscultation: normal bowel sounds General: Yes no CVA tenderness and Yes deferred Back/Spine/Pelvis Back: no CVA tenderness and No back tenderness Skin General skin exam: no rashes or lesions noted Neuro General: patient oriented x3, gait normal, tone normal, moves all extremities, Normal light touch and pain sensation and no focal motor deficits Extrem General: Yes full ROM, Yes no clubbing, cyanosis or edema and Yes normal gait Psych Appearance: grossly normal and well kempt Mental Status: mental status grossly normal Affect: normal affect Coding Level of Care Code Est Pt Prev Care 40-64y(78002) Diagnoses Annual visit for general adult medical examination with abnormal findings Z00.01 History of infiltrating ductal carcinoma of breast Z85.3 Mild intermittent asthma without complication J45.20 Asthma complication type: uncomplicated Advanced directives, counseling/discussion Z71.89 Additional Codes PHQ-9 - 31101 - PHQ-9 Billing: Yes ([id number]) HEMAL-7 Assessment Billing - HEMAL-7 Assessment Tool: HEMAL-7 Assessment 66001 ([id number]) Vital Signs *Quality* - Advance Care Planning discussion: Completed/Scanned ([id number]) Vital Signs *Quality* - Time spent: 16-45 minutes ([id number]) Assessment & Plan Assessment & Plan (1) Annual visit for general adult medical examination with abnormal findings: Code(s): Z00.01 - Encounter for general adult medical examination with abnormal findings Plan: Will check appropriate labs. Continue regular dental visit every 6 months and regular eye exams, at least every 2 years. Take adequate calcium in diet and vitamin-D 3 at 2000 IU per cap once a day, in addition to weight-bearing exercises to help maintain good muscle tone and weight control may hold off on taking additional vitamin-D supplements as last vitamin-D level was elevated. Currently gets yearly mammograms ordered by her oncologist at [facility], currently up-to-date will check and see when her last bone density scan was done and and what the findings are. Up-to-date with her screening colonoscopy due again in 2027. Does not want to get COVID boosters, reminded to get her yearly flu vaccine, will give a pneumonia vaccine on next visit, up-to-date with her shingles vaccine and Tdap (2) History of infiltrating ductal carcinoma of breast: Code(s): Z85.3 - Personal history of malignant neoplasm of breast Category: Medical Plan: Currently on anastrozole, followed at [facility] Oncology, up-to-date with her mammogram already done earlier this year (3) Mild intermittent asthma: Code(s): J45.20 - Mild intermittent asthma, uncomplicated Category: Medical Qualifiers: Asthma complication type: uncomplicated Qualified Code(s): J45.20 - Mild intermittent asthma, uncomplicated Plan: Takes albuterol inhaler as needed, rarely needing to use her Wixela inhaler. (4) Advanced directives, counseling/discussion: Code(s): Z71.89 - Other specified counseling Plan: Initiated the conversation about Advanced Directives. Advanced Directives help patients prepare for current and future decisions about their medical treatment and place of care. Discussed with patient that it is a process where a patients current condition and prognosis are reviewed, their wishes for information regarding their illness are elicited, and likely medical dilemmas are presented and options discussed. Healthcare proxy form completed today. The form can be amended as needed, reviewed yearly and make changes as needed Orders: Orders Alanine Aminotransferase Today E89.40 - Asymptomatic postprocedural ovarian failure, J45.20 - Mild intermittent asthma, uncomplicated, Z00.01 - Encounter for general adult medical examination with abnormal findings, Z13.1 - Encounter for screening for diabetes mellitus, Z13.220 - Encounter for screening for lipoid disorders, Z85.3 - Personal history of malignant neoplasm of breast Aspartate Amino Transferase Today E89.40 - Asymptomatic postprocedural ovarian failure, J45.20 - Mild intermittent asthma, uncomplicated, Z00.01 - Encounter for general adult medical examination with abnormal findings, Z13.1 - Encounter for screening for diabetes mellitus, Z13.220 - Encounter for screening for lipoid disorders, Z85.3 - Personal history of malignant neoplasm of breast Basic Metabolic Panel Fasting Today E89.40 - Asymptomatic postprocedural ovarian failure, J45.20 - Mild intermittent asthma, uncomplicated, Z00.01 - Encounter for general adult medical examination with abnormal findings, Z13.1 - Encounter for screening for diabetes mellitus, Z13.220 - Encounter for screening for lipoid disorders, Z85.3 - Personal history of malignant neoplasm of breast Lipid Panel Today E89.40 - Asymptomatic postprocedural ovarian failure, J45.20 - Mild intermittent asthma, uncomplicated, Z00.01 - Encounter for general adult medical examination with abnormal findings, Z13.1 - Encounter for screening for diabetes mellitus, Z13.220 - Encounter for screening for lipoid disorders, Z85.3 - Personal history of malignant neoplasm of breast Vitamin D 25-OH Total Today E89.40 - Asymptomatic postprocedural ovarian failure, J45.20 - Mild intermittent asthma, uncomplicated, Z00.01 - Encounter for general adult medical examination with abnormal findings, Z13.1 - Encounter for screening for diabetes mellitus, Z13.220 - Encounter for screening for lipoid disorders, Z85.3 - Personal history of malignant neoplasm of breast
[2024-11-06 09:02] VITALS: BP 134/80; PULSE 78; RESP 15; TEMP 36.4; O2SAT 98; BMI 23.3
== END 2024-11-06 09:48 | disposition home or self-care (01) ==
LOC: HO.HMCC 08:14
PROVIDERS: PCP Internal Medicine; Visit Provider Internal Medicine
DX: Z00.01 Encounter for general adult medical examination with abnormal findings (principal); Z85.3 Personal history of malignant neoplasm of breast; J45.20 Mild intermittent asthma, uncomplicated; Z71.89 Other specified counseling; Z00.00 Encounter for general adult medical examination without abnormal findings

== ENCOUNTER 2024-11-06 08:13 | Outpatient (REF) | payer OTHER, SELFPAY ==
[2024-11-06 14:11] LABS: Alanine Aminotransferase 23 U/L (0-31); Anion Gap 11 (12-20); Aspartate Amino Transferase 22 U/L (5-31); Blood Urea Nitrogen 18 mg/dL (9-16); Calcium 10.1 mg/dL (8.4-10.2); Carbon Dioxide 28 mmol/L (22-29); Chloride 109 mmol/L (96-108); Cholesterol 175 mg/dL (<200); Estimated Glomerular Filt Rate > 60; Glucose Fasting 93 mg/dL (60-99); HDL Cholesterol 57 mg/dL (>40); LDL Cholesterol Calculated 104 mg/dL (<100); Potassium 4.3 mmol/L (3.3-5.1); Sodium 144 mmol/L (135-145); Triglycerides 70 mg/dL (<150)
[2024-11-06 14:24] LABS: Vitamin D 25-OH Total > 154.2 ng/mL (>30)
== END 2024-11-06 08:14 | disposition home or self-care (01) ==
LOC: HO.HMGCLDS 08:13
PROVIDERS: PCP Internal Medicine; Visit Provider Internal Medicine
DX: Z00.01 Encounter for general adult medical examination with abnormal findings (principal); J45.20 Mild intermittent asthma, uncomplicated; E89.40 Asymptomatic postprocedural ovarian failure; Z85.3 Personal history of malignant neoplasm of breast; Z71.89 Other specified counseling; Z13.220 Encounter for screening for lipoid disorders; Z13.1 Encounter for screening for diabetes mellitus; Z13.6 Encounter for screening for cardiovascular disorders
CPT/HCPCS: 36415; 80048; 80061; 82306; 84450; 84460; 96127